=== PATIENT | female | born 1990 | race Caucasian/White ===

== ENCOUNTER 2023-02-09 13:44 | Day surgery (SDC) | payer OTHER ==
[2023-02-09] VITALS (8 sets, daily range): BP systolic 128–139; BP diastolic 80–90; PULSE 68–82; TEMP 97.9–98.3
[~2023-02-09] VITALS: Ht 165.1 cm; Wt 98.5 kg
[2023-02-09] MEDS ORDERED: SYNTHROID 0.0.025 MG PO (16:04)
[2023-02-09] MEDS ORDERED: GLUCOPHAGE500 MG/TAB PO (16:05)
[2023-02-09] MEDS ORDERED: NORCO 325 MG-51 TAB PO (16:18)
[2023-02-09] MEDS ORDERED: PYRIDIUM 100MG100 MG PO (16:18)
--- NOTE | 2023-02-09 17:00 | NUR ---
pt brought to room from pacu, at bedside. pt a&ox4, rates pain a 3/10. vss. med rec complete. FAST assessment complete. pt denies needs at this time. call light in reach.
--- NOTE | 2023-02-09 18:10 | NUR ---
pt tolerating intake. urinating withou difficulty. pain controlled. INT discontinued. discharge instructions given to pt. all questions answered.
--- NOTE | 2023-02-09 18:20 | NUR ---
pt escorted to personal vehicle by wheelchair
== END 2023-02-09 18:20 | disposition home or self-care (01) ==
LOC: SDCO 13:44 → SURG 17:00 → SDCO 18:20
DX: N20.1 Calculus of ureter (principal); F17.290 Nicotine dependence, other tobacco product, uncomplicated
CPT/HCPCS: OP; C1769; J0690; J1100; J1885; J2405; J2704; J3010; J7120; Q9967